=== PATIENT | male | born 1980 | race Caucasian/White ===

== ENCOUNTER 2020-03-05 16:47 | Emergency (ER) | payer OTHER, SELFPAY ==
--- NOTE | ~2020-03-05 | XR_ITS ---
EXAMINATION: XR ribs LT 2V EXAM DATE: 03/05/2020 17:24 INDICATION: Left anterior and lateral upper rib pain after fall. TECHNIQUE: Frontal projection of the upper left ribs, frontal projection of the lower left ribs, obli que projection of the left ribs, frontal chest x-ray(s) for interpretation. There is no prior study for comparison. FINDINGS: Acute nondisplaced left 7th rib fracture laterally, closed posttraumatic finding indicated. There is no soft tissue abnormality seen. No confluent consolidation, pneumothorax or pleural effus ion suspected. IMPRESSION: Acute left 7th rib fracture. Reviewed, dictated and finalized at location A.
[2020-03-05 16:58] VITALS: BP 147/87; PULSE 60; RESP 20; TEMP 37.1; O2SAT 99
--- NOTE | 2020-03-05 17:09 | ED.GENADULT ---
HPI - General Adult General Chief complaint: Unspecified Stated complaint: rib pain Time Seen by Provider: 03/05/20 17:09 Source: patient and RN notes reviewed Mode of arrival: ambulatory Limitations: no limitations History of Present Illness HPI narrative: 39-year-old male presents with complaints of intermittent left anterior rib cage pain status post fall for the past 2 days. Ibuprofen 600mg last this morning at 07:00 with some relief. Hiren says he was playing baseball and fell onto LT side with back taking the blunt of the fall. Denies difficulty breathing or coughing. Denies hitting head or loss consciousness. No bruising area. No deformity. Exacerbating factors consist of taking a deep breath and certain movements. Relieving factor consist of OTC medications and resting. Denies fever or chills. No cardiac chest pain, wheezing, or shortness of breath. Tolerating intake well. Remains active. The patient reports he have not been diagnosed with COVID-19. The patient reports he is not waiting for the results of a COVID-19 lab test. The patient reports he do not have fever, chills, or weakness. The patient reports he do not have a new or worsening cough. The patient reports he do not have any rhinorrhea, congestion, sore throat, nausea, vomiting, abdominal pain, and diarrhea. Denies recent traveling. Denies concerns for COVID-19 or exposures been home with limited outdoor exposure except for essential household needs and return home. At this time, patient is not suspected of having COVID-19. Some parts of this dictation were generated by voice recognition software and may contain typographical and/or grammatical inaccuracies. Related Data Allergies Allergy/AdvReac Type Severity Reaction Status Date / Time No Known Allergies Allergy Verified 03/05/20 16:56 Review of Systems Review of Systems: Narrative: CONSTITUTIONAL: Denies fever, chills, sweats. EYES: Denies visual changes, redness, discharge. ENT: Denies rhinorrhea, congestion, sore throat, otalgia. CARDIOVASCULAR: Denies chest pain, palpitations, edema. RESPIRATORY: Denies dyspnea, wheezing, cough. GASTROINTESTINAL: Denies abdominal pain, nausea, vomiting, diarrhea. GENITOURINARY: Denies dysuria, hematuria, abnormal discharge. SKIN: Denies rash or itching. MUSCULOSKELETAL: Denies acute back pain, myalgia. Complains of acute intermittent left anterior rib cage pain. NEUROLOGIC: Denies numbness or focal weakness. PSYCHIATRIC: Denies anxiety or depression. All systems reviewed & are unremarkable except as noted in HPI and below. [facility] Past Medical History Medical History (Updated 03/06/20 @ 00:00 by Fausto Mckeon) No significant past medical history Surgical History Surgical History (Updated 03/05/20 @ 17:45 by DAKSHA Ortega) No significant past surgical history Family History Family History (Updated 03/05/20 @ 17:46 by DAKSHA Ortega) Father Alive and well Mother Alive and well Social History Social History (Updated 03/05/20 @ 17:46 by DAKSHA Ortega) Smoking status: Former smoker Tobacco type: cigarettes Second hand tobacco smoke exposure: No Alcohol intake: current Substance use: never Living arrangements: with family Occupation/Education: occupation Gender identity (if verbalized by the patient): Male Sexual Orientation (if Verbalized by the Patient): Straight or Heterosexual Comments At time of signature, agree with nurse past medical, surgical, social, and family history. There is no relevant family history pertinent to the presenting complaint. Exam Narrative: Exam Narrative: GENERAL: This is a well-nourished, well-developed patient, in no apparent distress. Talks in full sentences and ambulates with steady gait without dyspnea. HEAD: normocephalic, atraumatic. EYES: PERRL. Sclera clear/white. Vision is grossly intact. NECK: Neck supple, non-tender without lymphadenopathy, masses or t
== END 2020-03-05 17:40 | disposition home or self-care (01) ==
PROVIDERS: Emergency Provider Nurse Practitioner Family
DX: S22.32XA Fracture of one rib, left side, initial encounter for closed fracture (principal); W19.XXXA Unspecified fall, initial encounter; Y93.64 Activity, baseball; Z87.891 Personal history of nicotine dependence
CPT/HCPCS: 71100; 99213; G0463